=== PATIENT | female | born 1965 | race Asian ===

== ENCOUNTER 2016-12-13 11:41 | Inpatient (IN) | payer MEDICAID ==
[~2016-12-13] VITALS: Ht 162.6 cm; Wt 44.0 kg
[~2016-12-13 11:41] MED LIST: ATOR1TAB PO; HYDR25TA4 PO; PANT1INJ3 PO
[2016-12-13 13:04] LABS: Urine Bilirubin Negative (Negative); Urine Blood Negative /uL (Negative); Urine Color Colorless (Yellow); Urine Glucose Normal (Normal); Urine Ketone TRACE (Negative); Urine Nitrite Negative (Negative); Urine RBC <1 /hpf (0 - 4); Urine Squamous Epithelial Cell FEW /hpf (<5); Urine Urobilinogen Normal (Negative); Urine pH 6.5 (5.0-8.0)
[2016-12-13 13:10] LABS: INR 1.03 (0.9-1.15); Partial Thromboplastin Time 28.1 sec (22.64-33.71); Prothrombin Time 10.6 sec (9.37-12.3)
[2016-12-13 13:19] LABS: Basophils # (auto) 0 uL; Basophils % (auto) 0.4 % (0.0-2.0); Eosinophils # (auto) 0 uL; Eosinophils % (auto) 0.5 % (0.0-7.0); Hematocrit 41.6 % (36.0-46.0); Hemoglobin 13.5 g/dL (12.2-16.2); Lymphocytes # (auto) 1.9 uL; Lymphocytes % (auto) 29.2 % (10.0-50.0); Mean Corpuscular Hemoglobin 29.3 pg (28.0-32.0); Mean Corpuscular Hgb Conc. 32.5 g/dL (32.0-36.0); Mean Corpuscular Volume 90.1 fL (80.0-100.0); Mean Platelet Volume 7.3 fL (7.4-10.4); Monocytes # (auto) 0.3 uL; Monocytes % (auto) 4.7 % (0.0-12.0); Neutrophils # (auto) 4.3 uL; Neutrophils % (auto) 65.2 % (37.0-80.0); Platelet Count (auto) 367 10^3/uL (140-450); Red Cell Distribution Width 12.7 % (11.6-16.0); White Blood Cell 6.5 10^3/uL (4.4-10.8)
[2016-12-13 13:27] LABS: BUN/Creatinine Ratio 13.6; Bilirubin, Total 0.5 mg/dL (0.2-1.0); Calcium 8.6 mg/dL (8.5-10.1); Magnesium 2.4 mg/dL (1.6-2.6); Potassium 3.4 mmol/L (3.5-5.1); Total Protein 8.6 g/dL (6.4-8.2)
[2016-12-13] MEDS ORDERED: LACTULOSE 20Gm/30ML SOLN PO PRN (14:45)
[2016-12-13] MEDS ORDERED: NITROGLYCERIN 0.4 MG SL TAB SL PRN (14:45)
[2016-12-13] MEDS ORDERED: TEMAZEPAM 15 MG CAP PO PRN (14:45)
[2016-12-13] MEDS ORDERED: PROMETHAZINE HCL 25 MG/ML 1ML IV PRN (14:45)
[2016-12-13] MEDS ORDERED: MORPHINE SULF INJ 2 MG/ML SYRINGE 1ML IV PRN ×2 (14:45)
[2016-12-13] MEDS ORDERED: ACETAMINOPHEN 500 MG TAB PO PRN (14:45)
[2016-12-13] MEDS ORDERED: FAMOTIDINE 20 MG TAB PO ONE (15:00)
[2016-12-13] MEDS ORDERED: ENOXAPARIN SOD 40 MG/0.4 ML SYRINGE SC ONE (15:00)
[2016-12-13] MEDS: SODIUM CHLORIDE 0.9% 1,000 ML IV SCH ×2 (15:09→17:36)
[2016-12-13] MEDS ORDERED: POTASSIUM CHL 20 Meq TABLET PO ONE (15:30)
[2016-12-13 16:13] LABS: Cholesterol 401 mg/dL (<200); HDL Cholesterol 47 mg/dL (40-59); LDL Cholesterol 301 mg/dL (<100); Triglycerides 120 mg/dL (<150)
[2016-12-13 16:19] LABS: Temperature: 22.7 C (20.0-25.0)
[2016-12-13] MEDS: HYDROcodone-ACET 5/325MG TAB PO PRN (17:35)
[2016-12-13] MEDS ORDERED: CLOPIDOGREL BISULFATE 75 MG TAB PO ONE (20:00)
[2016-12-13] MEDS: FAMOTIDINE 20 MG TAB PO SCH (20:52)
[2016-12-13 21:07] LABS: Cholesterol 388 mg/dL (<200); HDL Cholesterol 47 mg/dL (40-59); LDL Cholesterol 354 mg/dL (<100); Triglycerides 115 mg/dL (<150)
[2016-12-13 21:52] VITALS: BP 155/90
[2016-12-13] MEDS ORDERED: ATORVASTATIN 20 MG TAB PO SCH (22:00)
[2016-12-14 05:52] VITALS: BP 116/72
[2016-12-14 08:00] VITALS: BP 151/83
[2016-12-14 09:00] VITALS: BP 115/70
[2016-12-14] MEDS: CLOPIDOGREL BISULFATE 75 MG TAB PO SCH (10:06)
[2016-12-14] MEDS: ENOXAPARIN SOD 40 MG/0.4 ML SYRINGE SC SCH (10:07)
[2016-12-14] MEDS: FAMOTIDINE 20 MG TAB PO SCH ×2 (10:07→22:44)
[2016-12-14 13:00] VITALS: BP 121/70
[2016-12-14] MEDS: SODIUM CHLORIDE 0.9% 1,000 ML IV SCH (15:50)
[2016-12-14 17:16] VITALS: BP 147/89
[2016-12-14 22:00] VITALS: BP 112/71
[2016-12-14] MEDS: ATORVASTATIN 20 MG TAB PO SCH (22:44)
[2016-12-15] MEDS: SODIUM CHLORIDE 0.9% 1,000 ML IV SCH ×2 (04:15→16:35)
[2016-12-15 05:59] VITALS: BP 109/64
[2016-12-15 08:00] VITALS: BP 116/70
[2016-12-15 09:00] VITALS: BP 116/70
[2016-12-15] MEDS: CLOPIDOGREL BISULFATE 75 MG TAB PO SCH (10:01)
[2016-12-15] MEDS: FAMOTIDINE 20 MG TAB PO SCH ×2 (10:01→21:59)
[2016-12-15] MEDS: ENOXAPARIN SOD 40 MG/0.4 ML SYRINGE SC SCH (10:02)
[2016-12-15 13:00] VITALS: BP 125/71
[2016-12-15] MEDS: HYDROcodone-ACET 5/325MG TAB PO PRN (16:34)
[2016-12-15 16:42] VITALS: BP 114/66
[2016-12-15] MEDS ORDERED: ACETAMINOPHEN 325 MG TAB PO PRN (18:45)
[2016-12-15 21:37] VITALS: BP 140/86
[2016-12-15] MEDS: ATORVASTATIN 20 MG TAB PO SCH (21:59)
[2016-12-15] MEDS: LORazepam 0.5 MG TAB PO PRN (23:34)
[2016-12-16] VITALS (7 sets, daily range): BP systolic 102–159; BP diastolic 70–95
[2016-12-16] MEDS: CLOPIDOGREL BISULFATE 75 MG TAB PO SCH (09:11)
[2016-12-16] MEDS: SODIUM CHLORIDE 0.9% 1,000 ML IV SCH ×2 (09:11→17:51)
[2016-12-16] MEDS: ENOXAPARIN SOD 40 MG/0.4 ML SYRINGE SC SCH (09:11)
[2016-12-16] MEDS: FAMOTIDINE 20 MG TAB PO SCH ×2 (09:11→22:05)
[2016-12-16] MEDS: PANTOPRAZOLE 40 MG TAB PO SCH ×2 (16:12→22:06)
[2016-12-16] MEDS: LORazepam 0.5 MG TAB PO PRN (16:21)
[2016-12-16] MEDS: ATORVASTATIN 20 MG TAB PO SCH (22:00)
[2016-12-17 05:00] VITALS: BP 114/70
[2016-12-17] MEDS: SODIUM CHLORIDE 0.9% 1,000 ML IV SCH (06:23)
[2016-12-17 08:00] VITALS: BP 151/86
[2016-12-17 09:00] VITALS: BP 151/86
[2016-12-17] MEDS: ENOXAPARIN SOD 40 MG/0.4 ML SYRINGE SC SCH (09:40)
[2016-12-17] MEDS: CLOPIDOGREL BISULFATE 75 MG TAB PO SCH (09:40)
[2016-12-17] MEDS: PANTOPRAZOLE 40 MG TAB PO SCH (09:40)
[2016-12-17] MEDS: FAMOTIDINE 20 MG TAB PO SCH (09:40)
[2016-12-17 12:51] VITALS: BP 126/69
[2016-12-17 13:04] VITALS: BP 150/81
== END 2016-12-17 14:00 | disposition home or self-care (01) | DRG 52 ==
LOC: EDUNIT# 11:41 → ER 11:41 → TELE 11:42 → TELE-E-ADS 15:54 → TELE-WESTW 17:20
PROVIDERS: ADMIT Internal Medicine; ATTEND Internal Medicine Pulmonary Disease
DX: I67.4 Hypertensive encephalopathy (principal); R64 Cachexia; I10 Essential (primary) hypertension; E87.6 Hypokalemia; K21.9 Gastro-esophageal reflux disease without esophagitis; E78.5 Hyperlipidemia, unspecified; Z88.6 Allergy status to analgesic agent; Z79.899 Other long term (current) drug therapy; Z82.49 Family history of ischemic heart disease and other diseases of the circulatory system; Z68.1 Body mass index [BMI] 19.9 or less, adult
CPT/HCPCS: 36415; 70450; 70551; 71010; 71020; 71250; 74176; 80053; 80061; 81001; 82550; 82607; 82746; 82962; 83090; 83735; 84443; 84484; 85025; 85379; 85610; 85652; 85730; 86141; 93005; 93306; 93886; 94761; 96372; G0434

== ENCOUNTER 2024-08-20 11:01 | Emergency (ER) | payer MEDICAID ==
[~2024-08-20] VITALS: Ht 152.4 cm; Wt 50.0 kg
[2024-08-20 11:25] LABS: Basophils # (auto) 0 10 ^3/uL (0-0.2); Basophils % (auto) 0.6 % (0.0-2.0); Eosinophils # (auto) 0.1 10 ^3/uL (0-0.8); Eosinophils % (auto) 1.6 % (0.0-7.0); Hematocrit 44.1 % (36.0-46.0); Lymphocytes # (auto) 1.3 10 ^3/uL (0.4-5.4); Lymphocytes % (auto) 23.3 % (10.0-50.0); Mean Corpuscular Hemoglobin 33.6 pg (28.0-32.0); Mean Corpuscular Hgb Conc. 34.1 g/dL (32.0-36.0); Mean Corpuscular Volume 98.6 fL (80.0-100.0); Monocytes # (auto) 0.6 10 ^3/uL (0-1.3); Monocytes % (auto) 11.1 % (0.0-12.0); Neutrophils # (auto) 3.5 10 ^3/uL (1.6-8.6); Neutrophils % (auto) 63.4 % (37.0-80.0); Nucleated Red Blood Cells % 0.2 %; Platelet Count (auto) 281 10^3/uL (140-450); Red Blood Cells 4.47 10^6/uL (4.0-5.20); White Blood Cell 5.5 10^3/uL (4.4-10.8)
[2024-08-20 11:39] LABS: INR 0.96 (0.9-1.15); Partial Thromboplastin Time 25.2 SEC (24.5-34.5); Prothrombin Time 10.2 sec (9.3-11.8)
[2024-08-20 12:14] LABS: Alanine Aminotransferase 43 U/L (7-40); Albumin 4.6 g/dL (3.2-4.8); Alkaline Phosphatase 121 U/L (46-116); Anion Gap 7 (5-15); Aspartate Aminotransferase 38 U/L (13-40); Bilirubin, Total 0.5 mg/dL (0.2-1.0); Blood Urea Nitrogen 9 mg/dL (9-23); Calcium 9.9 mg/dL (8.7-10.4); Carbon Dioxide 25 mmol/L (20-31); Chloride 108 mmol/L (98-107); Glucose 92 mg/dL (74-106); Potassium 4.1 mmol/L (3.5-5.1); Sodium 140 mmol/L (136-145); Total Protein 8.3 g/dL (5.7-8.2)
[2024-08-20 12:50] LABS: Urine Bacteria FEW /hpf (None Seen); Urine Blood Negative /uL (Negative); Urine Clarity Clear (Clear); Urine Color Colorless (Yellow); Urine Protein, UAD Negative (Negative); Urine Specific Gravity 1.005 (1.001-1.035); Urine Urobilinogen Normal (Negative); Urine WBC 1 /hpf (0 - 5); Urine pH 7.5 (5.0-9.0)
[2024-08-20] MEDS: ASPirin 325 MG TAB PO ONE (13:00)
[2024-08-20] MEDS: NITROGLYCERIN 0.4 MG SL TAB SL ONE (14:05)
[2024-08-20 14:19] VITALS: TEMP 98.3
[2024-08-20 14:20] VITALS: PULSE 68; RESP 16; O2SAT 100
[2024-08-20] MEDS ORDERED: ONDANSETRON HCL 4 MG/2 ML VIAL IM ONE (14:45)
[2024-08-20] MEDS ORDERED: MORPHINE SULFATE INJ 2 MG/ml SYRG IM ONE (14:45)
[2024-08-20] MEDS: ONDANSETRON HCL 4 MG/2 ML VIAL IV ONE (15:12)
[2024-08-20] MEDS: MORPHINE SULFATE INJ 2 MG/ml SYRG IV ONE (15:13)
[2024-08-20 16:05] VITALS: BP 163/87; PULSE 87; RESP 16; O2SAT 100
== END 2024-08-20 18:15 | disposition home or self-care (01) ==
LOC: ER 11:01
DX: R07.89 Other chest pain (principal); I10 Essential (primary) hypertension; K21.9 Gastro-esophageal reflux disease without esophagitis; E78.00 Pure hypercholesterolemia, unspecified
CPT/HCPCS: 36415; 71045; 80053; 81001; 84484; 85025; 85379; 85610; 85730; 93005; 96374; 96375; 99285; J2270; J2405